=== PATIENT | female | born 1995 | race Caucasian/White ===

== ENCOUNTER 2018-12-22 05:48 | Day surgery (SDC) | payer BC, OTHER ==
--- NOTE | 2018-12-20 21:38 | PDGENHP ---
History and Physical - Chief Complaint RIGHT HIP PAIN - History of Present Illness Diagnosis: 1. 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 ~Maryenjoys running, cycling, rowing. Valery's~right~hip pain started April 2018, with~some~recalled trauma or injury~(after her 20 mile marathon training run, 3rd training but has only completed 1), and with~no~previous complaints.~Marydoes not have~a known history of hip dysplasia. Presentation today is of~anterior~right~hip pain deep inside. ~The hip~does not~ wake her~at night and~does not~click and catch on~her. Sitting~can be uncomfortable~for her~if she does so for prolonged periods of time.~Mary does not~report suffering from lower back pain episodes. She had both a R hip and pelvis MRI, which are available for review today. These were ordered by Dr. Padilla's PA.~ Maryhas~participated in physical therapy x5 wks, which she felt did not give any relief,~and~has~tried other conservative measures including massage therapy and~acupuncture, neither helpful.~She~has not~received sufficient symptomatic improvement. Maryhas not~utilized medication for pain management. Maryreports mild~issues with the~left~hip, but not to the level that she would seek care.~~ Maryunderstands that~mariangel~has a hip and pelvis problem which should be researched and wishes to get a better understanding of~her~hip status, followed by an establishment of a treatment strategy, hoping~mariangel~would be able to get back to~her~well being active life. History: Past medical history:~~ Patient~~has a past medical history of Petrona's disease and Hypothyroid. Relevant familial history:~None which is relevant~ Past surgical history:~ No. Surgery Anesthesia Year Outcome 1 R foot capsule repair General 2006 Good Valery~denies problematic issues with general anesthesia in the past. I have reviewed, verified and agree with the past medical, surgical, family and social history. Current Medications:~has a current medication list which includes the following prescription(s): levothyroxine, azelastine, fluticasone, and mellissa 08/24 (21). ALLERGIES:~has No Known Allergies. Objective: Physical Examination: Maryis 5~feet~6~inches tall and weighs~145~Lbs. Shoe size~8. Maryis AAO x3; she~is well-nourished, in NAD. Skin is warm and dry. ~ Breathing is non-labored. ~CV with RRR by pulse. Abdomen is soft, NTND. Currently,~she~walks with a~normal~gait. Trendelenburg sign is~negative~and proprioception~is normal,~both~sides. She~presents~with mild~signs of joint laxity.~Beightons Score:~3 (elbows, L pinky) She~is fit looking. ~~ Lower spine examination is~negative~for sciatic or femoral nerve irritation with negative~SLR &~femoral stretch tests. Range of motion of the spine is normal~for flexion, extension, and rotations,~with no~associated pain. Strength, Sensation and pulses are~normal -~bilaterally Ankles and knees exams are~normal~and~no~mal-alignment is evident.~ She~has~right~0.25~cm short leg length discrepancy. Thigh circumference is~symmetric~with no evidence for muscle atrophy~on both~ sides. Hip ROM (degrees): FL ER At 90~hip FL IR At 90~hip FL AB AD EX IR Neutral hip ER Neutral hip R 100 45 20 40 10 5 50 45 L 105 50 15 45 10 5 50 45 Specific hip and pelvis tests: Impingement Test MARY ANNE Roll Add. Longus R +++ +++ Negative Negative L Negative Negative Negative Negative Glut. Med ITB Posterior Imp R Negative 5/5 strength Negative 5/5 strength Negative L Negative 5/5 strength Negative 5/5 strength Negative Squeeze test measured~normal Bony Symphysis pubis is~painful~to touch (+)~while concentric activity of the rectus abdominis,~does not~produce pain at its insertion. Ilio Psos specific tests are~positive for pain during cycling for~the right hip~ and remarkable for non painful snap~L side HF has~pain~the right hip. No~capsule tenderness bilaterally Greater trochanteric burse is~pain free~on both hips. Piriformis tests: FAIR is~negative,~with no~local signs of neuritis related to sciatic nerve. SIJs examination is~normal~with~normal~MARY ANNE in relation and local tenderness. Hamstrings tests are~negative~tendinopathy both hips. On a daily basis, the following percentages reflect~Valery's overall total pain: Deep hip/groin:~100% Imaging: Radiology studies which I~have personally reviewed, analyzed and measured are below: XR: AP of the hip and pelvis: Performed in a~fair~technique Coccyx to pubic symphysis distance~3.5~cm. No annotation of~degrees caudal/cephal [place]~Lines are preserved. Minimal~Pathological signs are seen in the Symphysis Pubis.~ Minimal~Pathological signs are seen at the Ischial~tuberosity. ~ Specific measurements show: NSA~ LCE Sourcil~Angle Sharp's angle Lat. Cam Lat. Pincer C.Over~sign Head~Coverage % ATDmm R 131 37 -3 38 Neg Neg Neg 87% 16.4 L 129 34 -4 38 Neg Neg 12:30 88% 21.6 Pos. wall sign ISS NAD ~~Dysplasia Comments R Negative + 18.8~mm Negative L Negative ++ 12.2~mm Negative Sclerosis Sup. Lat. OA Cysts Joint Space-WBZ Joint Space-Medial R Negative Negative Negative 4.0~mm 3.8~mm L Negative Negative Negative 3.9~mm 4.6~mm X Table lateral: Anterior cam lesion is~subtle, but is~seen~on both hips. Alpha Angle: ~ Right~50~degrees Left~53~degrees MRI shows:~ 06/19/18 R hip~arthrogram~- signs of~everted labrum,~good cartilage quality, no acetabular cysts/edema 07/23/18 Pelvis -~~No significant hamstring or glut tendon tears or edema. Impression and plan:~ Valery~is a~22 y.o.~active female~suffering from symptomatic~Bilateral~ Femoroacetabular impingement (PEG) mixed~type~(RIGHT symptomatic)~causing significant disability to~her~and altering~her~sport and life activities. Her MRI and down sloping sourcil anatomy suggest Everted labrum with compromised suction seal. Physical examination, imaging, and~her~story correspond with the diagnosis mentioned above. I explained that femoroacetabular impingement (PEG) arises due to a bony or soft tissue conflict between the femur (ball) and acetabulum (socket) caused by an abnormality in the shape of the hip joint. Over time, repetitive impingement can result in damage to the labrum and adjacent surface cartilage within the socket, ultimately giving rise to progressive osteoarthritis of the hip. I explained that although a labral tear can be a source of pain, it is rarely the root of the problem and typically occurs secondary to an underlying abnormality in the shape and mechanics of the hip joint. ~ I reviewed conservative treatment options for PEG including activity modification to avoid positions of impingement, physical therapy, non-steroidal anti-inflammatory medications, and various injections (corticosteroid and PRP) aimed at reducing inflammation in the hip joint or/and preventing dynamic impingement. PRP injections may promote healing and reduce symptoms in certain cases but it will not repair chronically damaged tissue. Although these measures may help to buy time and reduce current level of symptoms, they are not a definitive solution to the problem given the underlying abnormality in the shape of the hip joint. Patients who have failed conservative management and continue to experience symptoms are candidates for hip arthroscopy, a minimally invasive surgery that can definitively address the underlying problem. Hip arthroscopy typically includes treating the labrum with either repair or reconstruction of the torn labrum; as well as addressing the underlying abnormalities by restoring the normal shape to the hip joint. ~If the cartilage is damaged a Microfracture~ surgical procedure may also be necessary to help stimulate the growth of fibrocartilage. ~If a patient requires a labral reconstruction or a Microfracture, the initial rehabilitation from the surgery may take longer, but the shelter results are typically favorable. I reviewed the technical aspects of hip arthroscopy including risks, benefits, and expected course of recovery. Valery understands that hip arthroscopy is a minimally invasive outpatient procedure carried out through small incisions on the outer aspect of the hip joint. During surgery, the labral tear will be identified and either repaired or reconstructed using bone anchors and suture material. Additionally, any excessive bone will be removed with a high-speed kirill to reshape the hip joint and restore normal anatomy. Risks include infection, bleeding, injury to nearby nerves or vessels, stiffness, persistent pain, instability, venous thromboembolic disease, and traction related complications including temporary foot numbness. Rarely, revision surgery may be required to address these problems. Overall recovery takes approximately 4 8 months depending on the extent of damage and degree of repair. In the event that the labral tissue quality is inadequate for successful repair and healing, Valery understands that a labral reconstruction will be performed. This procedure entails placing a cadaver tissue graft within the hip joint and stabilizing it with bone anchors to build a new labrum. The overall recovery time for labral reconstruction is similar to that of labral repair, although the surgical procedure takes longer to perform. Marywill review the info presented. In order to obtain more detailed information regarding the alignment, orientation, and shape of the bony hip and pelvis I will order a CT scan to be performed. The results of the CT scan, including femoral torsion and acetabular version measured values and 3D images, will aid me in deciding on the best treatment strategy and surgical pre-planning. Maryis going to contact us after completing her~imaging studies. She will attempt to have the CT before she travels back to [place] and then likely need to review the results via phone or email.~ Marywill talk with our artificial breast fabricator about possible surgery dates. Maryis happy with this plan. I have also supplied~her~with handouts, outlining the expected surgical treatment and rehab involved. I wish~Maryall the best, ~~ Gracy Garza MD History Information - Allergies/Home Medication List Allergies/Adverse Reactions: No Known Allergies Allergy (Verified 12/16/18 16:55) Home Medications: Control 12/16/18 [Last Taken 12/02/18] Herbals/Supplements -Info Only 12/16/18 [Last Taken 12/16/18] Synthroid 12/16/18 [Last Taken Unknown] I have personally reviewed and updated: medical history - Social History Smoking Status: Never smoked Review of Systems Review of Systems: Physical Exam Physical Exam:
[2018-12-22] MEDS ORDERED: ceFAZolin 2 GM/DEXTROSE 100 ML IV ONE (05:54)
[2018-12-22] MEDS ORDERED: ACETAMINOPHEN 500 MG TAB PO ONE (05:54)
[2018-12-22] MEDS ORDERED: PREGABALIN 150 MG CAP PO ONE (05:54)
[2018-12-22] MEDS ORDERED: LR 1,000 ML IV ONE (05:56)
[2018-12-22] MEDS ORDERED: EPINEPHrine 30 MG/30 ML MDV (0.1 MG/0.1 ML) ONE ×3 (06:25→07:00)
[2018-12-22] MEDS ORDERED: BUPIVACAINE/EPI 0.25% 30 ML SDV ONE ×3 (06:25→07:00)
[2018-12-22] MEDS ORDERED: MIDAZOLAM 2 MG/2 ML VIAL IVP ONE (07:10)
--- NOTE | 2018-12-22 07:10 | PDANEPAE ---
ANE History of Present Illness right hip congenital djd, here for right hip scope and femoroplasty ANE Past Medical History - Cardiovascular History Hx Hypertension: No Hx Arrhythmias: No Hx Chest Pain: No Hx Coronary Artery / Peripheral Vascular Disease: No Hx CHF / Valvular Disease: No Hx Palpitations: No - Pulmonary History Hx COPD: No Hx Asthma/Reactive Airway Disease: No Hx Recent Upper Respiratory Infection: No Hx Oxygen in Use at Home: No Hx Sleep Apnea: No Sleep Apnea Screening Result - Last Documented: Negative - Neurologic History Hx Cerebrovascular Accident: No Hx Seizures: No Hx Dementia: No - Endocrine History Hx Diabetes: No Endocrine History Comment: hypothyroidism - Renal History Hx Renal Disorders: Yes Renal History Comment: recent uti - Liver History Hx Hepatic Disorders: No - Neurological & Psychiatric Hx Hx Neurological and Psychiatric Disorders: No - Cancer History Hx Cancer: No - Congenital Disorder History Hx Congenital Disorders: No - GI History Hx Gastrointestinal Disorders: No - Other Health History Other Health History: none - Chronic Pain History Chronic Pain: No - Surgical History Prior Surgeries: 10/2018 deviated septum repair. bone graft surgery for dental implant in 2014. foot cartiledge repair in 2006 ANE Review of Systems Review of Systems: - Exercise capacity METS (RN): 5 METS ANE Patient History - Allergies Allergies/Adverse Reactions: No Known Allergies Allergy (Verified 12/16/18 16:55) - Home Medications Home Medications: Control 12/16/18 [Last Taken 12/02/18] Herbals/Supplements -Info Only 12/16/18 [Last Taken 12/16/18] Synthroid 12/16/18 [Last Taken 12/21/18] - NPO status NPO Since - Liquids (Date): 12/22/18 NPO Since - Liquids (Time): 03:45 NPO Since - Solids (Date): 12/21/18 NPO Since - Solids (Time): 22:30 - Smoking Hx Smoking Status: Never smoked - Family Anes Hx Family Hx Anesthesia Complications: none ANE Labs/Vital Signs - Vital Signs Blood Pressure: 114/69 Heart Rate: 68 Respiratory Rate: 16 O2 Sat (%): 97 Height: 167.64 cm Weight: 63.503 kg ANE Physical Exam - Airway Neck exam: FROM Mallampati Score: Class 1 Mouth exam: normal dental/mouth exam - Pulmonary Pulmonary: no respiratory distress, no rales or rhonchi - Cardiovascular Cardiovascular: regular rate and rhythym, no murmur, rub, or gallop - ASA Status ASA Status: II ANE Anesthesia Plan Anesthesia Plan: general endotracheal anesthesia Total IV Anesthesia: No
[2018-12-22] MEDS ORDERED: MIDAZOLAM 2 MG/2 ML VIAL ONE (07:11)
[2018-12-22] MEDS ORDERED: fentaNYL 100 MCG/2 ML INJ ONE (07:19)
[2018-12-22] MEDS ORDERED: LIDOCAINE 2% 100 MG/5 ML SYR ONE (07:19)
[2018-12-22] MEDS ORDERED: DEXAMETHASONE 4 MG/ML VIAL ONE (07:19)
[2018-12-22] MEDS ORDERED: PROPOFOL 200 MG/20 ML VIAL ONE (07:19)
[2018-12-22] MEDS ORDERED: ROCURONIUM 50 MG/5 ML VIAL ONE (07:19)
[2018-12-22] MEDS ORDERED: ONDANSETRON 4 MG/2 ML VIAL ONE (10:56)
[2018-12-22] MEDS ORDERED: HYDROmorphONE/DILAUDID 2 MG/ML INJ ONE (10:59)
[2018-12-22] MEDS ORDERED: DIAZEPAM 10 MG/2 ML SYR IVP PRN (11:06)
[2018-12-22] MEDS ORDERED: PHENYLEPHRINE HCL 100 MCG/ML SYR IVP PRN (11:06)
[2018-12-22] MEDS ORDERED: HYDROmorphONE/DILAUDID 1 MG/ML INJ IVP PRN (11:06)
[2018-12-22] MEDS ORDERED: NALOXONE HCL 0.4 MG/ML INJ IVP PRN (11:06)
[2018-12-22] MEDS ORDERED: MEPERIDINE 25 MG/0.5 ML AMP IVP PRN (11:06)
[2018-12-22] MEDS ORDERED: METOCLOPRAMIDE 10 MG/2 ML VIAL IVP PRN (11:06)
[2018-12-22] MEDS ORDERED: LR 500 ML IV PRN (11:06)
[2018-12-22] MEDS ORDERED: oxyCODONE IR 5 MG TAB PO PRN (11:06)
[2018-12-22] MEDS ORDERED: PROMETHAZINE HCL 25 MG/ML INJ IVP PRN (11:06)
[2018-12-22] MEDS ORDERED: fentaNYL 100 MCG/2 ML INJ IVP PRN (11:06)
--- NOTE | 2018-12-22 11:32 | POSTANESTH ---
Post Anesthetic Evaluation Cardiovascular Status: Normal, Stable Respiratory Status: Normal, Stable Level of Consciousness/Mental Status: Can Participate in Eval, Alert and Oriented Pain Control: Adequate, Prn Tx Ordered Nausea/Vomiting Control: Adequate, Prn Tx Ordered Complications Possibly Related to Anesthesia: None Noted
[2018-12-22 13:07] VITALS: BP 136/76
[2018-12-22] MEDS ORDERED: oxyCODONE IR 5 MG TAB ONE (13:19)
--- NOTE | 2018-12-22 15:04 | POSTOPPROG ---
Post Op Note Date of Operation: 12/22/18 Surgeon: Addi Loo Analysis Specialist: Dr. Ricks Anesthesia: GET(General Endotracheal) Pre-op Diagnosis: RIGHT PEG Post-op Diagnosis: RIGHT PEG Procedure: Right hip arthroscopy Inf/Abcess present in the surg proc area at time of surgery?: No
== END 2018-12-22 14:17 | disposition home or self-care (01) ==
LOC: FSGY 05:48
PROVIDERS: ATTEND Orthopaedic Surgery Sports Medicine
PROC: 0SB94ZZ Excision of Right Hip Joint, Percutaneous Endoscopic Approach (ICD-10-PCS; principal; 2018-12-22 07:15)
PROC: 0SQ94ZZ Repair Right Hip Joint, Percutaneous Endoscopic Approach (ICD-10-PCS; principal; 2018-12-22 07:15)
PROC: BQ101ZZ Fluoroscopy of Right Hip using Low Osmolar Contrast (ICD-10-PCS; principal; 2018-12-22 07:15)
DX: M25.851 Other specified joint disorders, right hip (principal); S73.191D Other sprain of right hip, subsequent encounter; M65.9 Synovitis and tenosynovitis, unspecified; E03.9 Hypothyroidism, unspecified; Z87.440 Personal history of urinary (tract) infections
CPT/HCPCS: C1713; J0171; J0690; J1100; J1170; J2001; J2250; J2405; J2704; J3010